=== PATIENT | female | born 1990 | race Native Hawaiian/Other Pacific Islander ===

== ENCOUNTER 2018-01-16 11:34 | Emergency (ER) | payer OTHER ==
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
[2018-01-16] MEDS ORDERED: MOTRIN PO ONE (12:10)
[2018-01-16 14:02] VITALS: BP 130/80
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
== END 2018-01-16 14:00 | disposition home or self-care (01) ==
LOC: ED 11:34
DX: S13.4XXA Sprain of ligaments of cervical spine, initial encounter (principal); S39.012A Strain of muscle, fascia and tendon of lower back, initial encounter; K21.9 Gastro-esophageal reflux disease without esophagitis; F17.200 Nicotine dependence, unspecified, uncomplicated; V49.49XA Driver injured in collision with other motor vehicles in traffic accident, initial encounter; Y93.89 Activity, other specified; Y92.89 Other specified places as the place of occurrence of the external cause; Y99.8 Other external cause status
CPT/HCPCS: 72040; 72100

== ENCOUNTER 2020-01-22 18:32 | Emergency (ER) | payer MEDICAID ==
--- NOTE | 2020-01-22 19:12 | Event Note ---
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 Further treatment and workup at subsequent clinical providers discretion. Patient/guardian urged not to elope from the ED as their condition may be serious if not clinically assessed and managed. Initial orders include: UA, labs, US after confirmed by labs
[2020-01-22] MEDS ORDERED: ACETAMINOPHEN 500 MG TAB PO ONE (19:35)
[2020-01-22 19:38] LABS: Basophils # (Auto) 0.1 K/mm3 (0.0-0.1); Basophils % (Auto) 0.8 % (0.0-1.8); Eosinophils # (Auto) 0.1 K/mm3 (0.0-0.4); Eosinophils % (Auto) 0.4 % (0.0-4.3); Hematocrit 42.3 % (30.3-42.9); Lymphocytes # (Auto) 2.8 K/mm3 (1.2-5.4); Lymphocytes % (Auto) 16.1 % (13.4-35.0); Mean Corpuscular HGB Conc 33 % (30-34); Mean Corpuscular Volume 84 fl (79-97); Monocytes % (Auto) 5.8 % (0.0-7.3); Platelet Count 311 K/mm3 (140-440); Red Blood Count 5.01 M/mm3 (3.65-5.03); Red Cell Distribution Width 13.7 % (13.2-15.2)
[2020-01-22 19:51] LABS: Bacteria,Urine 2+ /HPF (Negative); Bilirubin,Urine NEG (Negative); Blood,Urine LG (Negative); Color,Urine Yellow (Yellow); Mucus,Urine FEW /HPF; Protein,Urine <15 mg/dL mg/dL (Negative); Urobilinogen,Urine < 2.0 mg/dL (<2.0)
[2020-01-22 20:03] LABS: Alanine Aminotransferase 27 units/L (7-56); Albumin 4.4 g/dL (3.9-5); BUN/Creatinine Ratio 13; Blood Urea Nitrogen 9 mg/dL (7-17); Calcium 9.3 mg/dL (8.4-10.2); Hemolysis Index 3
--- NOTE | 2020-01-22 20:24 | Emergency Department Report ---
ED Female HPI - General Chief complaint: Vaginal Bleeding Stated complaint: PREG BLEEDING Time Seen by Provider: 01/22/20 19:10 Source: patient Mode of arrival: Ambulatory Limitations: No Limitations - History of Present Illness Initial comments: Patient is a A0 29-year-old female with no past medical history and who is approximately 6 weeks gestation and who presents to the ED with complaint of acute onset persistent heavy vaginal bleeding for the last 8 hours. 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 Patient also complains of mild pelvic pain which she describes as mild cramps. Patient states that she has an [employer] physician in [facility] but who has privileges at [facility] as that is the place she prefers to deliver her baby when the time comes. Patient denies nausea, vomiting, diarrhea, fever, chills, cough, chest pain, shortness of breath, dysuria, urinary frequency and urgency, vaginal discharge or dizziness. MD Complaint: vaginal bleeding, pelvic pain -: Sudden, hour(s) (8) Location: other (vaginal) Radiation: non-radiating Severity: moderate Severity scale (0 -10): 4 Quality: cramping, aching Consistency: constant Improves with: none Worsens with: none Are you Now?: Yes (Approx 6 weeks gestation) Last Menstrual Period: 12/08/19 EDC: 09/13/20 Associated Symptoms: denies other symptoms, vaginal bleeding, abdominal pain. denies: vaginal discharge, nausea/vomiting, fever/chills, headaches, loss of appetite, dysuria, hematuria, rash, seizure, shortness of breath, syncope, weakness - Related Data Sexually active: Yes : 1 Para: 0 A: 0 Previous Rx's Medication Instructions Recorded Last Taken Type Acetaminophen/Codeine 1 tab PO Q6H PRN #10 tab 10/12/14 Unknown Rx [Acetaminophen-Codeine #3 TAB] Cyclobenzaprine [Flexeril 10mg] 10 mg PO BID PRN #10 tablet 10/12/14 Unknown Rx Ibuprofen [Motrin 600 MG tab] 600 mg PO Q8H PRN #14 tablet 10/12/14 Unknown Rx Prednisone [Prednisone 10 mg 10 mg PO .TAPER #1 tab.ds.pk 10/12/14 Unknown Rx (6-Day Pack, 21 Tabs)] Magnesium Citrate [Citroma] 296 ml PO ONCE #1 solution 10/26/14 Unknown Rx Cyclobenzaprine [Flexeril] 10 mg PO BID PRN #10 tablet 01/16/18 Unknown Rx Ibuprofen [Motrin] 600 mg PO Q8H PRN #30 tablet 01/16/18 Unknown Rx Acetaminophen [Tylenol] 500 mg PO Q6HR PRN #30 tablet 01/22/20 Unknown Rx Allergies Allergy/AdvReac Type Severity Reaction Status Date / Time No Known Allergies Allergy Verified 01/16/18 11:39 ED Review of Systems ROS: Stated complaint: PREG BLEEDING Other details as noted in HPI Constitutional: denies: chills, fever Eyes: denies: eye pain, eye discharge, vision change ENT: denies: ear pain, throat pain Respiratory: denies: cough, shortness of breath, wheezing Cardiovascular: denies: chest pain, palpitations Endocrine: no symptoms reported Gastrointestinal: abdominal pain (suprapubic pain). denies: nausea, vomiting, diarrhea Genitourinary: abnormal menses (heavy vaginal bleeding). denies: urgency, dysuria, frequency, hematuria, discharge Musculoskeletal: denies: back pain, joint swelling, arthralgia Skin: denies: rash, lesions Neurological: denies: headache, weakness, paresthesias Psychiatric: denies: anxiety, depression Hematological/Lymphatic: denies: easy bleeding, easy bruising ED Past Medical Hx - Past Medical History Previous Medical History?: Yes Hx GERD: Yes Additional medical history: hyperventaling - Social History Smoking Status: Never Smoker Substance Use Type: None - Medications Home Medications: Home Medications Medication Instructions Recorded Confirmed Last Taken Type Acetaminophen/Codeine 1 tab PO Q6H PRN #10 tab 10/12/14 Unknown Rx [Acetaminophen-Codeine #3 TAB] Cyclobenzaprine [Flexeril 10mg] 10 mg PO BID PRN #10 tablet 10/12/14 Unknown Rx Ibuprofen [Motrin 600 MG tab] 600 mg PO Q8H PRN #14 tablet 10/12/14 Unknown Rx Prednisone [Prednisone 10 mg 10 mg PO .TAPER #1 tab.ds.pk 10/12/14 Unknown Rx (6-Day Pack, 21 Tabs)] Magnesium Citrate [Citroma] 296 ml PO ONCE #1 solution 10/26/14 Unknown Rx Cyclobenzaprine [Flexeril] 10 mg PO BID PRN #10 tablet 01/16/18 Unknown Rx Ibuprofen [Motrin] 600 mg PO Q8H PRN #30 tablet 01/16/18 Unknown Rx Acetaminophen [Tylenol] 500 mg PO Q6HR PRN #30 tablet 01/22/20 Unknown Rx ED Physical Exam - General Limitations: No Limitations General appearance: alert, in no apparent distress - Head Head exam: Present: atraumatic, normocephalic, normal inspection - Eye Eye exam: Present: normal appearance, PERRL, EOMI Pupils: Present: normal accommodation - ENT ENT exam: Present: normal exam, normal orophraynx, mucous membranes moist, TM's normal bilaterally, normal external ear exam - Neck Neck exam: Present: normal inspection, full ROM - Respiratory Respiratory exam: Present: normal lung sounds bilaterally. Absent: respiratory distress, wheezes, rales, rhonchi, chest wall tenderness, accessory muscle use, decreased breath sounds, prolonged expiratory - Cardiovascular Cardiovascular Exam: Present: normal rhythm, tachycardia, normal heart sounds. Absent: systolic murmur, diastolic murmur, rubs, gallop - GI/Abdominal GI/Abdominal exam: Present: soft, tenderness (mildly tender suprapubic area), normal bowel sounds. Absent: guarding, rebound, hyperactive bowel sounds, hypoactive bowel sounds - Bi-manual exam: Present: other (Pelvic exam deferred per patient request) - Extremities Exam Extremities exam: Present: normal inspection, full ROM, normal capillary refill - Back Exam Back exam: Present: normal inspection, full ROM. Absent: tenderness, CVA tenderness (R), muscle spasm, paraspinal tenderness, vertebral tenderness - Neurological Exam Neurological exam: Present: alert, oriented X3, CN II-XII intact, normal gait, reflexes normal - Psychiatric Psychiatric exam: Present: normal affect, normal mood - Skin Skin exam: Present: warm, dry, intact, normal color. Absent: rash ED Course Vital Signs 01/22/20 01/22/20 18:36 23:19 Temperature 98.4 F 98.2 F Pulse Rate 106 H 74 Respiratory 18 18 Rate Blood Pressure 137/86 Blood Pressure 132/81 [Left] O2 Sat by Pulse 99 98 Oximetry ED Medical Decision Making - Lab Data Result diagrams: 01/22/20 19:19 01/22/20 19:19 - Radiology Data Radiology results: report reviewed, image reviewed Findings [facility] [address] [place] [address] Ultrasound Report Signed Patient: DAVONTE RASHID MR#: [id number] : 1990 Acct:[id number] Age/Sex: 29 / F ADM Date: 01/22/20 Loc: ED Attending Dr: Ordering Physician: АННА ALICEA Date of Service: 01/22/20 Procedure(s): US OB transvaginal Accession Number(s): [id number] cc: АННА ALICEA ULTRASOUND OBSTETRIC INDICATION / CLINICAL INFORMATION: Pelvic pain, vaginal bleeding. Clinical Gestational Age (GA): 6 weeks 3 days TECHNIQUE: Transabdominal and Transvaginal. COMPARISON: None available. FINDINGS: GESTATIONAL SAC: Well-defined oval shape and intrauterine in location. By mean gestational sac diameter of 7.0 mm, estimated ultrasound age is 5 weeks 3 days. YOLK SAC: No significant abnormality. EMBRYO/FETUS: Not identified ADNEXA: No significant abnormality. FREE FLUID: None. ADDITIONAL FINDINGS: None. IMPRESSION: Viable intrauterine with sonographic age of 5 weeks 3 days by mean gestational sac diameter. Nonvisualization of the embryo is likely due to early stage of . Signer Name: Boy Greenfield MD Signed: 01/22/2020 10:41 PM Workstation Name: [id number] Transcribed By: ALCIDES Dictated By: Boy Greenfield MD Electronically Authenticated By: Boy Greenfield MD Signed Date/Time: 01/22/202240 DD/ 37 TD/TT: Findings [facility] [address] [place] [address] Ultrasound Report Signed Patient: DAVONTE RASHID MR#: [id number] : 1990 Acct:[id number] Age/Sex: 29 / F ADM Date: 01/22/20 Loc: ED Attending Dr: Ordering Physician: АННА ALICEA Date of Service: 01/22/20 Procedure(s): US OB <= 14 weeks fetus Accession Number(s): [id number] cc: АННА ALICEA ULTRASOUND OBSTETRIC INDICATION / CLINICAL INFORMATION: Pelvic pain, vaginal bleeding. Clinical Gestational Age (GA): 6 weeks 3 days TECHNIQUE: Transabdominal and Transvaginal. COMPARISON: None available. FINDINGS: GESTATIONAL SAC: Well-defined oval shape and intrauterine in location. By mean gestational sac diameter of 7.0 mm, estimated ultrasound age is 5 weeks 3 days. YOLK SAC: No significant abnormality. EMBRYO/FETUS: Not identified ADNEXA: No significant abnormality. FREE FLUID: None. ADDITIONAL FINDINGS: None. IMPRESSION: Viable intrauterine with sonographic age of 5 weeks 3 days by mean gestational sac diameter. Nonvisualization of the embryo is likely due to early stage of . Signer Name: Boy Greenfield MD Signed: 01/22/2020 10:41 PM Workstation Name: [id number] Transcribed By: DMB Dictated By: Boy Greenfield MD Electronically Authenticated By: Boy Greenfield MD Signed Date/Time: 01/22/202240 DD/ 37 TD/TT: - Medical Decision Making This is a A0 29-year-old female with no past medical history and who is approximately 6 weeks gestation and who presents to the ED with complaint of acute onset persistent heavy vaginal bleeding for the last 8 hours. 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 Patient also complains of mild pelvic pain which she describes as mild cramps. Patient states that she has an [employer] physician in [facility] but who has privileges at [facility] as that is the place she prefers to deliver her baby when the time comes. In the ED, patient is alert and oriented x3 and is not in any distress. Patient is however tachycardic in triage. Patient was treated for pain in the ED with Tylenol, and lab test results were reviewed and showed acute leukocytosis of 17,500, large blood in urine, mild hypokalemia of 3.3 mmol/L, and hCG quant of 4227. The ABO/RH test was A positive. On reevaluation, patient's pain is well controlled with medications. Transvaginal ultrasound shows a viable intrauterine with sonographic age of 5 weeks 3 days by mean gestational sac diameter. Nonvisualization of the embryo is likely due to early stage of . Patient was discharged home and advised to take Tylenol as needed for pain and to maintain a complete pelvic rest devoid of physical or strenuous activities or heavy lifting and sexual intercourse. Patient was advised to follow-up with [employer] physician or return to the ED in 48 hours for serial hCG quant repeat. Patient was otherwise advised to return to the ED immediately if symptoms get worse. - Differential Diagnosis Threatened miscarriage; UTI; Subchorionic bleed; Ovarian cyst; ectopic Critical care attestation.: If time is entered above; I have spent that time in minutes in the direct care of this critically ill patient, excluding procedure time. ED Disposition Clinical Impression: Threatened miscarriage in early , Vaginal bleeding in , Abdominal pain during in first trimester Disposition: DC-01 TO HOME OR SELFCARE Is pt being admited?: No Does the pt Need Aspirin: No Condition: Stable Instructions: Threatened Miscarriage (ED), Abdominal Pain in (ED) Additional Instructions: Maintain a complete pelvic rest without any physical or strenuous activities like sexual intercourse or heavy lifting. Take Tylenol as needed for pain. Follow-up with your [employer]NER or return to the ED within 48 hours for repeat hCG quant test to ascertain the viability of the . Return to the ED immediately if your symptoms get worse. Prescriptions: Acetaminophen [Tylenol] 500 mg PO Q6HR PRN #30 tablet PRN Reason: Pain , Severe (7-10) Referrals: OSIEL AHUJA MD [Staff Physician] - 2-3 Days Time of Disposition: 23:09 Print Language: PASHTO
[2020-01-22] MEDS ORDERED: POTASSIUM CHLORIDE ER 20 MEQ TAB PO ONE (20:29)
--- NOTE | 2020-01-22 22:46 | Ultrasound Report ---
ULTRASOUND OBSTETRIC INDICATION / CLINICAL INFORMATION: Pelvic pain, vaginal bleeding. Clinical Gestational Age (GA): 6 weeks 3 days TECHNIQUE: Transabdominal and Transvaginal. COMPARISON: None available. FINDINGS: GESTATIONAL SAC: Well-defined oval shape and intrauterine in location. By mean gestational sac diamet er of 7.0 mm, estimated ultrasound age is 5 weeks 3 days. YOLK SAC: No significant abnormality. EMBRYO/FETUS: Not identified ADNEXA: No significant abnormality. FREE FLUID: None. ADDITIONAL FINDINGS: None. IMPRESSION: Viable intrauterine with sonographic age of 5 weeks 3 days by mean gestational sac diameter . Nonvisualization of the embryo is likely due to early stage of . Signer Name: Boy Greenfield MD Signed: 01/22/2020 10:41 PM Workstation Name: [id number]
[2020-01-22 23:20] VITALS: BP 132/81
== END 2020-01-22 23:20 | disposition home or self-care (01) ==
LOC: ED 18:32
DX: O20.0 Threatened abortion (principal); K21.9 Gastro-esophageal reflux disease without esophagitis; Z79.1 Long term (current) use of non-steroidal anti-inflammatories (NSAID); Z79.899 Other long term (current) drug therapy; Z3A.01 Less than 8 weeks gestation of pregnancy
CPT/HCPCS: 36415; 76801; 76817; 80053; 81001; 84702; 85025; 86900; 86901

== ENCOUNTER 2020-01-24 17:30 | Emergency (ER) | payer MEDICAID ==
--- NOTE | 2020-01-24 17:57 | Event Note ---
ED Screening Note ED Screening Note: bleeding has stopped she is here for repeat hcg quant mild cramping, 3/ her first appt with ob is on February 25 PMHx PCOS no allergies to meds LNMP: december 08, 2019 1st This initial assessment/diagnostic orders/clinical plan/treatment(s) is/are subject to change based on patients health status, clinical progression and re- assessment by fellow clinical providers in the ED. Further treatment and workup at subsequent clinical providers discretion. Patient/guardian urged not to elope from the ED as their condition may be serious if not clinically assessed and managed. Initial orders include: hcg quant, cbc
[2020-01-24 18:31] LABS: Basophils # (Auto) 0.1 K/mm3 (0.0-0.1); Basophils % (Auto) 0.6 % (0.0-1.8); Eosinophils # (Auto) 0.3 K/mm3 (0.0-0.4); Eosinophils % (Auto) 1.8 % (0.0-4.3); Hematocrit 42.9 % (30.3-42.9); Hemoglobin 14.2 gm/dl (10.1-14.3); Lymphocytes # (Auto) 2.6 K/mm3 (1.2-5.4); Lymphocytes % (Auto) 17.4 % (13.4-35.0); Mean Corpuscular HGB Conc 33 % (30-34); Mean Corpuscular Volume 86 fl (79-97); Monocytes # (Auto) 1.1 K/mm3 (0.0-0.8); Platelet Count 299 K/mm3 (140-440); Red Blood Count 4.99 M/mm3 (3.65-5.03); Red Cell Distribution Width 13.7 % (13.2-15.2)
--- NOTE | 2020-01-24 21:30 | Emergency Department Report ---
ED Recheck HPI - General Chief Complaint: Recheck/Abnormal Lab/Rx Stated Complaint: FOLLOW UP/MISCARRIAGE Time Seen by Provider: 01/24/20 17:56 Source: patient Mode of arrival: Ambulatory Limitations: No Limitations - History of Present Illness Initial Comments: Patient is a A0 29-year-old female who is approximately 5 weeks gestation and who presented to the ED for serial hCG quant repeat test after her initial visit 2 days ago. Patient had presented to the ED 2 days ago with complaint of acute onset severe pelvic pain with heavy vaginal bleeding. During that visit, the patient's hCG quant was 4227, and the transvaginal ultrasound showed a viable intrauterine with sonographic age of 5 weeks 3 days by mean gestational sac diameter and that the nonvisualization of the embryo is likely due to early stage of . Patient was advised to return to the ED at the time within 2 days for repeat hCG quant to characterize the viability of . Patient now states that her pelvic pain and vaginal bleeding has resolved. Patient states that she continues to maintain a complete pelvic rest and avoiding heavy physical or strenuous activity. Patient denies fever, chills, dysuria, urinary frequency and urgency, dizziness, syncope, cough, diarrhea, nausea and vomiting, chest pain or shortness of breath. Patient states that she has an appointment with her [facility] physician in [facility] on February 26, 2020. Complaint: abnormal lab, other (serial HCG Quant repeat; ) -: Sudden, days(s) (2) Initial Visit For: other (Early , repeat hcg Quant studies) Returns Today for: other (serial hcg quant studies repeat) Symptoms Since Prior Visit: improved (No vaginal bleeding or pelvic pain) Context: planned re-check Associated Symptoms: none. denies: fever, chills, chest pain, shortness of breath, rash, malaise, nasuea, abdominal pain Treatments Prior to Arrival: other medications, home treatments, Given Pain Meds on - Related Data Previous Rx's Medication Instructions Recorded Last Taken Type Acetaminophen/Codeine 1 tab PO Q6H PRN #10 tab 10/12/14 Unknown Rx [Acetaminophen-Codeine #3 TAB] Cyclobenzaprine [Flexeril 10mg] 10 mg PO BID PRN #10 tablet 10/12/14 Unknown Rx Ibuprofen [Motrin 600 MG tab] 600 mg PO Q8H PRN #14 tablet 10/12/14 Unknown Rx Prednisone [Prednisone 10 mg 10 mg PO .TAPER #1 tab.ds.pk 10/12/14 Unknown Rx (6-Day Pack, 21 Tabs)] Magnesium Citrate [Citroma] 296 ml PO ONCE #1 solution 10/26/14 Unknown Rx Cyclobenzaprine [Flexeril] 10 mg PO BID PRN #10 tablet 01/16/18 Unknown Rx Ibuprofen [Motrin] 600 mg PO Q8H PRN #30 tablet 01/16/18 Unknown Rx Acetaminophen [Tylenol] 500 mg PO Q6HR PRN #30 tablet 01/22/20 Unknown Rx Allergies Allergy/AdvReac Type Severity Reaction Status Date / Time No Known Allergies Allergy Verified 01/16/18 11:39 ED Review of Systems ROS: Stated complaint: FOLLOW UP/MISCARRIAGE Other details as noted in HPI Constitutional: denies: chills, fever Eyes: denies: eye pain, eye discharge, vision change ENT: denies: ear pain, throat pain Respiratory: denies: cough, shortness of breath, wheezing Cardiovascular: denies: chest pain, palpitations Endocrine: no symptoms reported Gastrointestinal: abdominal pain (mild suprapubic pain). denies: nausea, vomiting, diarrhea Genitourinary: denies: urgency, dysuria, discharge, abnormal menses Musculoskeletal: denies: back pain, joint swelling, arthralgia Skin: denies: rash, lesions Neurological: denies: headache, weakness, paresthesias Psychiatric: denies: anxiety, depression Hematological/Lymphatic: denies: easy bleeding, easy bruising ED Past Medical Hx - Past Medical History Previous Medical History?: Yes Hx GERD: Yes Additional medical history: hyperventaling, Polycystic Ovarian Disease - Surgical History Past Surgical History?: No - Social History Smoking Status: Never Smoker Substance Use Type: Marijuana - Medications Home Medications: Home Medications Medication Instructions Recorded Confirmed Last Taken Type Acetaminophen/Codeine 1 tab PO Q6H PRN #10 tab 10/12/14 Unknown Rx [Acetaminophen-Codeine #3 TAB] Cyclobenzaprine [Flexeril 10mg] 10 mg PO BID PRN #10 tablet 10/12/14 Unknown Rx Ibuprofen [Motrin 600 MG tab] 600 mg PO Q8H PRN #14 tablet 10/12/14 Unknown Rx Prednisone [Prednisone 10 mg 10 mg PO .TAPER #1 tab.ds.pk 10/12/14 Unknown Rx (6-Day Pack, 21 Tabs)] Magnesium Citrate [Citroma] 296 ml PO ONCE #1 solution 10/26/14 Unknown Rx Cyclobenzaprine [Flexeril] 10 mg PO BID PRN #10 tablet 01/16/18 Unknown Rx Ibuprofen [Motrin] 600 mg PO Q8H PRN #30 tablet 01/16/18 Unknown Rx Acetaminophen [Tylenol] 500 mg PO Q6HR PRN #30 tablet 01/22/20 Unknown Rx ED Physical Exam - General Limitations: No Limitations General appearance: alert, in no apparent distress - Head Head exam: Present: atraumatic, normocephalic, normal inspection - Eye Eye exam: Present: normal appearance, PERRL, EOMI Pupils: Present: normal accommodation - ENT ENT exam: Present: normal exam, normal orophraynx, mucous membranes moist, TM's normal bilaterally, normal external ear exam - Neck Neck exam: Present: normal inspection, full ROM - Respiratory Respiratory exam: Present: normal lung sounds bilaterally. Absent: respiratory distress, wheezes, stridor, accessory muscle use, decreased breath sounds, prolonged expiratory - Cardiovascular Cardiovascular Exam: Present: regular rate, normal rhythm, normal heart sounds. Absent: systolic murmur, diastolic murmur, rubs, gallop - GI/Abdominal GI/Abdominal exam: Present: soft, normal bowel sounds. Absent: tenderness, guarding, hyperactive bowel sounds, hypoactive bowel sounds - Extremities Exam Extremities exam: Present: normal inspection, full ROM, normal capillary refill - Back Exam Back exam: Present: normal inspection, full ROM. Absent: tenderness, CVA tenderness (R), CVA tenderness (L), muscle spasm, vertebral tenderness - Neurological Exam Neurological exam: Present: alert, oriented X3, CN II-XII intact, normal gait, reflexes normal - Psychiatric Psychiatric exam: Present: normal affect, normal mood - Skin Skin exam: Present: warm, dry, intact, normal color. Absent: rash ED Course Vital Signs 01/24/20 17:32 Temperature 99.3 F Pulse Rate 89 Respiratory 16 Rate Blood Pressure 127/78 [Right] O2 Sat by Pulse 98 Oximetry ED Recheck MDM - Core Measures AMI Core Measures Followed: No Measure Exclusions: not indicated - Differential Diagnosis Recheck of Abnormal Lab ; Ovarian cyst; UTI; eCTOPIC - Medical Decision Making This is a A0 29-year-old female who is approximately 5 weeks gestation and who presented to the ED for serial hCG quant repeat test after her initial visit 2 days ago. Patient had presented to the ED 2 days ago with complaint of acute onset severe pelvic pain with heavy vaginal bleeding. During that visit, the patient's hCG quant was 4227, and the transvaginal ultrasound showed a viable intrauterine with sonographic age of 5 weeks 3 days by mean gestational sac diameter and that the nonvisualization of the embryo is likely due to early stage of . Patient was advised to return to the ED at the time within 2 days for repeat hCG quant to characterize the viability of . Patient now states that her pelvic pain and vaginal bleeding has resolved. Patient states that she continues to maintain a complete pelvic rest and avoiding heavy physical or strenuous activity. In the ED, patient is alert and oriented x3 and is not in any distress. The repeat hCG quant studies during this visit shows hCG quant of 6916, the number almost double the original value 2 days ago showing that the is viable and that the growth is progressing. Given the fact that the patient states that her pelvic pain and vaginal bleeding have resolved, patient was advised to continue to maintain a complete pelvic rest and to follow-up with her [employer] physician as previously scheduled. Patient was however advised to return to the ED immediately if symptoms get worse. Critical care attestation.: If time is entered above; I have spent that time in minutes in the direct care of this critically ill patient, excluding procedure time. ED Disposition Clinical Impression: at early stage, Abdominal pain during in first trimester Disposition: DC-01 TO HOME OR SELFCARE Is pt being admited?: No Does the pt Need Aspirin: No Condition: Stable Instructions: Abdominal Pain in (ED) Additional Instructions: Continue to maintain complete pelvic rest, take Tylenol as needed for pain and follow-up with your [employer]ICE [employer]AD physician as previously scheduled. Return to the ED immediately if symptoms get worse. Referrals: RENEE FLORES MD [Staff Physician] - 3-5 Days Time of Disposition: 21:31 Print Language: YORUBA
[2020-01-24 21:55] VITALS: BP 138/86
== END 2020-01-24 21:55 | disposition home or self-care (01) ==
LOC: ED 17:30
DX: O26.891 Other specified pregnancy related conditions, first trimester (principal); R10.2 Pelvic and perineal pain; K21.9 Gastro-esophageal reflux disease without esophagitis; F12.10 Cannabis abuse, uncomplicated; Z79.1 Long term (current) use of non-steroidal anti-inflammatories (NSAID); Z79.899 Other long term (current) drug therapy; Z3A.01 Less than 8 weeks gestation of pregnancy
CPT/HCPCS: 36415; 84702; 85025

== ENCOUNTER 2021-01-20 12:52 | Emergency (ER) | payer MEDICAID ==
[2021-01-20 13:16] VITALS: BP 134/66
--- NOTE | 2021-01-20 13:31 | Emergency Department Report ---
ED General Adult HPI - General Chief complaint: Sore Throat Stated complaint: SORE THROAT Time Seen by Provider: 01/20/21 13:24 Source: patient Mode of arrival: Ambulatory Limitations: No Limitations - History of Present Illness Initial comments: 30-year-old female patient presents to emergency department with complaints of sore throat since yesterday. Patient states she was exposed to a family member exhibiting similar symptoms approximately 4 days ago. No recent travel. No current steroid or antibiotic use. Denies fever, chills, cough, neck stiffness, wheezing, vomiting. Denies all other complaints at this time. - Related Data Previous Rx's Medication Instructions Recorded Last Taken Type Acetaminophen/Codeine 1 tab PO Q6H PRN #10 tab 10/12/14 Unknown Rx [Acetaminophen-Codeine #3 TAB] Cyclobenzaprine [Flexeril 10mg] 10 mg PO BID PRN #10 tablet 10/12/14 Unknown Rx Ibuprofen [Motrin 600 MG tab] 600 mg PO Q8H PRN #14 tablet 10/12/14 Unknown Rx Prednisone [Prednisone 10 mg 10 mg PO .TAPER #1 tab.ds.pk 10/12/14 Unknown Rx (6-Day Pack, 21 Tabs)] Magnesium Citrate [Citroma] 296 ml PO ONCE #1 solution 10/26/14 Unknown Rx Cyclobenzaprine [Flexeril] 10 mg PO BID PRN #10 tablet 01/16/18 Unknown Rx Ibuprofen [Motrin] 600 mg PO Q8H PRN #30 tablet 01/16/18 Unknown Rx Acetaminophen [Tylenol] 500 mg PO Q6HR PRN #30 tablet 01/22/20 Unknown Rx Nystas/Diphen/Xyl Visc/Mylanta 30 ml MM Q4H PRN #1 bottle 01/20/21 Unknown Rx [Magic Mouthwash] Allergies Allergy/AdvReac Type Severity Reaction Status Date / Time No Known Allergies Allergy Verified 01/16/18 11:39 ED Review of Systems ROS: Stated complaint: SORE THROAT Other details as noted in HPI Other: GENERAL: Negative for fever. ENT: Positive for sore throat. CARDIOVASCULAR: Negative for chest pain. PULMONARY: Negative for shortness of breath. GASTROINTESTINAL: Negative for abdominal pain. MUSCULOSKELETAL: Negative for back pain. NEUROLOGICAL: Negative for headache. INTEGUMENTARY: Negative for rash. ED Past Medical Hx - Past Medical History Previous Medical History?: Yes Hx GERD: Yes Additional medical history: hyperventaling, Polycystic Ovarian Disease - Surgical History Past Surgical History?: No - Social History Substance Use Type: Marijuana - Medications Home Medications: Home Medications Medication Instructions Recorded Confirmed Last Taken Type Acetaminophen/Codeine 1 tab PO Q6H PRN #10 tab 10/12/14 Unknown Rx [Acetaminophen-Codeine #3 TAB] Cyclobenzaprine [Flexeril 10mg] 10 mg PO BID PRN #10 tablet 10/12/14 Unknown Rx Ibuprofen [Motrin 600 MG tab] 600 mg PO Q8H PRN #14 tablet 10/12/14 Unknown Rx Prednisone [Prednisone 10 mg 10 mg PO .TAPER #1 tab.ds.pk 10/12/14 Unknown Rx (6-Day Pack, 21 Tabs)] Magnesium Citrate [Citroma] 296 ml PO ONCE #1 solution 10/26/14 Unknown Rx Cyclobenzaprine [Flexeril] 10 mg PO BID PRN #10 tablet 01/16/18 Unknown Rx Ibuprofen [Motrin] 600 mg PO Q8H PRN #30 tablet 01/16/18 Unknown Rx Acetaminophen [Tylenol] 500 mg PO Q6HR PRN #30 tablet 01/22/20 Unknown Rx Nystas/Diphen/Xyl Visc/Mylanta 30 ml MM Q4H PRN #1 bottle 01/20/21 Unknown Rx [Magic Mouthwash] ED Physical Exam - General Limitations: No Limitations - Other Other exam information: General: Awake and alert. No acute distress. Head: Atraumatic, normocephalic. Eyes: EOMI. Pupils are equal and round. Normal sclera and conjunctiva. ENT: Oral mucosa is moist. Normal otoscopic exam. There is pharyngeal erythema with minimal exudate bilaterally. Uvula is midline and nonedematous. No trismus. Airway is patent. Neck: Supple. Mild nontender anterior cervical lymphadenopathy. Pulmonary: No respiratory distress. Clear to auscultation bilaterally. Cardiac: Regular rate and rhythm. Pulses are palpable and equal bilaterally. No lower extremity cyanosis or edema. Skin: Warm and dry. No rashes. Abdomen: Soft, non-tender, non-protuberant. No guarding, rigidity, or rebound. Bowel sounds are normal. No organomegaly or masses noted. Back: Normal alignment. No CVA tenderness. Extremities: Symmetrical. Full range of motion intact. Neurological: Alert and oriented, appropriately interactive, no focal deficits. Psych: Cooperative. Appropriate mood and affect. Speech is evenly metered. Thoughts are logically construed. ED Course Vital Signs 01/20/21 13:15 Temperature 98.8 F Pulse Rate 90 Respiratory 16 Rate Blood Pressure 134/66 [Right] O2 Sat by Pulse 97 Oximetry ED Medical Decision Making - Medical Decision Making Differential diagnosis including but not limited to: strep pharyngitis, viral pharyngitis, peritonsillar abscess, Mau's angina, retropharyngeal abscess, epiglottitis, mononucleosis On reevaluation, patient remains stable. No hypoxia, no respiratory distress. Patient is speaking in handling secretions without difficulty. Rapid stress test is negative. History and exam findings suggestive of viral pharyngitis; no clinical indication for further diagnostic work-up on an emergent basis at this time. Strep culture is pending. Patient will be discharged home with appropriate symptomatic treatment and referred to primary care provider for close outpatient follow-up. Patient expressed understanding and is agreeable to plan of care. Disease transmission precautions discussed. Strict return precautions provided. Repeat exam is unremarkable and benign. History, exam, diagnostic testing, and current condition do not suggest worrisome pathology to warrant further testing, continued ED treatment, admission, or surgical evaluation at this point. Given the low probability of a significant medical illness, it would be more likely to result in harm than benefit to perform further testing at this stage. Discussed findings, presumptive diagnosis, need for follow-up and specific signs/symptoms that should prompt immediate return to the emergency department. Instructions were explained in detail to the patient in addition to giving written discharge information. Patient expressed understanding and was given the opportunity to ask questions, all of which were satisfactorily answered prior to discharge home. Critical care attestation.: If time is entered above; I have spent that time in minutes in the direct care of this critically ill patient, excluding procedure time. ED Disposition Clinical Impression: Pharyngitis Qualifiers: Pharyngitis/tonsillitis etiology: unspecified etiology Qualified Code(s): J02.9 - Acute pharyngitis, unspecified Disposition: - TO HOME OR SELFCARE Is pt being admited?: No Does the pt Need Aspirin: No Condition: Stable Instructions: Sore Throat, [id number] Additional Instructions: Take Tylenol every 4 hours and Motrin every 8 hours as needed for pain. Use Magic mouthwash as needed for pain. Use salt water gargles and Cepacol lozenges as needed for pain. Rest. Drink plenty of fluids. Wash hands frequently to prevent disease transmission. Do not share food or drinks with others. Follow-up with primary care provider this week. Call today to schedule an appointment. See referral information below. Return to the emergency department immediately for new or worsening symptoms. Prescriptions: Nystas/Diphen/Xyl Visc/Mylanta [Magic Mouthwash] 30 ml MM Q4H PRN #1 bottle PRN Reason: Sore Throat Referrals: MAMTA GRIFFITH MD [Staff Physician] - 3-5 Days [facility] [Outside] - 3-5 Days [facility] [Outside] - 3-5 Days [facility] [Outside] - 3-5 Days [facility] [Provider Group] - 3-5 Days Time of Disposition: 13:58
== END 2021-01-20 14:18 | disposition home or self-care (01) ==
LOC: ED 12:52
DX: J02.9 Acute pharyngitis, unspecified (principal); K21.9 Gastro-esophageal reflux disease without esophagitis; F12.10 Cannabis abuse, uncomplicated; Z79.1 Long term (current) use of non-steroidal anti-inflammatories (NSAID); Z79.899 Other long term (current) drug therapy
CPT/HCPCS: 87116; 87430